=== PATIENT | female | born 1980 | race Caucasian/White ===

== ENCOUNTER → 2017-01-17 | Outpatient (CLI) | payer OTHER ==
[~2017-01-17] MED LIST: CITA20TA9 PO; LEVOIUD INT UTER
== END | disposition home or self-care (01) ==
LOC: C.PAPS 14:09
PROVIDERS: ATTEND Obstetrics & Gynecology
DX: Z12.4 Encounter for screening for malignant neoplasm of cervix (principal)

== ENCOUNTER 2017-07-04 19:58 | Emergency (ER) | payer OTHER ==
[~2017-07-04] VITALS: Ht 160 cm; Wt 158.6 kg
[~2017-07-04 19:58] MED LIST changes: -LEVOIUD INT UTER
[2017-07-04 20:04] VITALS: TEMP 37; Ht 160 cm; Wt 158.6 kg
[2017-07-04] MEDS ORDERED: LEVOIUD INT UTER (20:23)
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
[2017-07-04] MEDS ORDERED: OPTIRAY 320 IV PRN (20:45)
[2017-07-04 21:19] LABS: ISTAT CREATININE 0.8 mg/dl (0.6-1.3); ISTAT HEMOGLOBIN 16.3 g/dl (12.0-16.0); ISTAT IONIZED CALCIUM 1.11 mmol/l (1.12-1.32)
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
[2017-07-04] MEDS ORDERED: OXYCODONE IR HOME PACK PO ONE (22:30)
[2017-07-04 22:50] VITALS: BP 148/86; PULSE 80; O2SAT 98
== END 2017-07-04 22:50 | disposition home or self-care (01) ==
LOC: EDBD 19:58 → C.EDC 19:59
DX: S20.211A Contusion of right front wall of thorax, initial encounter (principal); V47.0XXA Car driver injured in collision with fixed or stationary object in nontraffic accident, initial encounter

== ENCOUNTER → 2018-03-04 | Outpatient (CLI) | payer OTHER ==
[~2018-03-04] MED LIST changes: -CITA20TA9 PO; +LEVO1IUD2 INT UTER
== END | disposition home or self-care (01) ==
LOC: C.PAPS 15:35
PROVIDERS: ATTEND Obstetrics & Gynecology
DX: Z12.4 Encounter for screening for malignant neoplasm of cervix (principal)

== ENCOUNTER → 2018-03-04 | Outpatient (CLI) | payer OTHER | END | disposition home or self-care (01) | LOC: C.LABSPEC 15:51 | PROVIDERS: ATTEND Obstetrics & Gynecology | DX: Z11.3 Encounter for screening for infections with a predominantly sexual mode of transmission (principal) ==

== ENCOUNTER → 2018-06-07 | Outpatient (CLI) | payer OTHER ==
[2018-06-07 14:43] LABS: HEP C IGG 13 YRS+OLDER_RFLX NEG (NEG)
== END | disposition home or self-care (01) ==
LOC: C.LAB1850 08:37
PROVIDERS: ATTEND Physician Assistant
DX: Z11.3 Encounter for screening for infections with a predominantly sexual mode of transmission (principal); R39.9 Unspecified symptoms and signs involving the genitourinary system

== ENCOUNTER 2024-03-01 00:24 | Observation (INO) ==
[2024-03-01 02:11] LABS: Basophils # (auto) 0.06 K/uL (0.00-0.20); Basophils % (auto) 0.3 %; Eosinophils % (auto) 0.5 %; Hematocrit (blood only) 39.4 % (37.0-47.0); Hemoglobin 12.7 g/dl (12.0-16.0); Immature Granulocytes # (auto) 0.22 K/uL (0.01-0.20); Immature Granulocytes % (auto) 1.2 %; Lymphocytes # (auto) 0.79 K/uL (1.20-3.40); Lymphocytes % (auto) 4.1 %; Mean Corpuscular Hemoglobin 29.2 pg (25.0-34.0); Mean Corpuscular Hgb Conc 32.2 g/dL (32.0-36.0); Mean Corpuscular Volume 90.6 fL (80.0-100.0); Mean Platelet Volume 8.6 fL (9.4-12.4); Monocytes # (auto) 0.97 K/uL (0.11-0.59); Monocytes % (auto) 5.1 %; Neutrophils # (auto) 16.94 K/uL (1.40-6.50); Neutrophils % (auto) 88.8 %; Platelet Count 220 K/uL (130-400); RDW Coefficient of Variation 12.8 % (11.5-14.5); RDW Standard Deviation 42.3 fL (36.4-46.3); Red Blood Count 4.35 M/uL (4.20-5.40); White Blood Count 19.08 K/ul (4.8-10.8)
[2024-03-01 02:32] LABS: Alanine Aminotransferase 13 U/L (7-52); Albumin Level 3.9 gm/dl (3.4-5.0); Alkaline Phosphatase 59 U/L (34-104); Anion Gap 9 (3-11); Aspartate Aminotransferase 12 U/L (13-39); BUN Creatinine Ratio 13.2 (10-20); Bilirubin Direct 0.1 mg/dl (0-0.2); Bilirubin,Total 0.5 mg/dl (0.2-1.0); Blood Urea Nitrogen 12 mg/dl (6-23); Calcium 8.8 mg/dl (8.6-10.3); Carbon Dioxide 25 mmol/L (21-32); Chloride 103 mmol/L (98-107); Est GFR (African American) 88.3 ml/min; Est GFR (Non-African American) 76.2 ml/min; Glucose 120 mg/dl (70-99(Fasting)); Magnesium 1.5 mg/dl (1.7-2.4); Potassium 3.6 mmol/L (3.5-5.1); Sodium 137 mmol/L (136-145); Total Protein 6.9 gm/dl (6.0-8.3)
[2024-03-01 02:39] LABS: Troponin I High Sensitivity 7.9 pg/ml (0-14)
--- NOTE | 2024-03-01 02:39 | Emergency Department Note ---
Impression & Plan Sepsis, Hypomagnesemia Admit to the [facility] ED Provider Note NAME: ROJAS PEREZ AGE: 43 SEX: Female INFORMANT: Patient ED PROVIDER(S): Alena Parekh DO CHIEF COMPLAINT: Fever and chills PLAN: Disposition: Admit to the [facility] MEDICAL DECISION MAKING: This is a 43-year-old female patient presents to the emergency department with fever, chills and fatigue. Overall, the patient does not feel well. She is currently taking Flagyl for previously diagnosed vaginal infection. She feels as if this is getting better. Patient denies any significant health problems. Laboratory studies revealed a white blood cell count of 19,000. H&H were stable. Renal function was normal. Electrolytes were unremarkable except for magnesium which was low. Lactate was normal but procalcitonin was elevated to 2.45. Patient was treated with an IV dose of cefepime as no source was readily identified. Patient was bolused with a total of 2 L of normal saline solution according to her ideal body weight. Patient was noted to be hypomagnesemic and started to receive magnesium replacement. Patient went for CT scan of the chest as she was complaining of shortness of breath upon her initial presentation to the emergency department. Patient's tachycardia resolved. [facility] for further management. Care/management discussed with: Patient, mother Triage Nursing notes: Reviewed and agree with them. Vital Signs: reviewed and remarkable for tachycardia Additional History obtained from: The mother who is at the bedside Differential Diagnosis: Sepsis, UTI, PE, pneumonia, bacteremia Diagnostics, independently interpreted by me: ECG: None Cardiac Monitoring: Sinus tachycardia at 108 Imaging studies: Portable chest x-ray-as per my independent interpretation-no obvious pulmonary Infiltrates or consolidations. CT scan of the chest: As per stat rad HPI: 43 year old Female arrives for evaluation of fever and chills. Around 4 PM this afternoon, the patient noted significant fever and chills while at work. She went to her room and covered himself up with a blanket. She then felt very fatigued. Patient then went home and continued to feel badly with shaking thought to be secondary to chills.. PAST MEDICAL HISTORY: See Below, PAST SURGICAL HISTORY: See Below, SOCIAL HISTORY: See Below, HOME MEDICATIONS: See list ALLERGIES: None VITALS: See Below PHYSICAL EXAMINATION: HEENT: Head - normocephalic and atraumatic. Pupils are equal, round, and reactive to light. Extraocular eye muscles are intact, and sclera are anicteric. Nose - moist nasal mucosa without discharge. Mouth - moist buccal mucosa. Oropharynx is nonerythematous and there is no tonsillar exudate or edema noted. Neck: Supple; no JVD, nuchal rigidity, cervical lymphadenopathy. Heart: Tachycardic rate and regular rhythm. There is a normal S1 and S2 with no murmurs, clicks, or gallops appreciated. Lungs: Clear to auscultation bilaterally with no wheezes, rales, or rhonchi. Abdomen: Soft, completely nontender, nondistended, with good bowel sounds. There are no palpable pulsatile masses or hepatosplenomegaly. There is no guarding, rigidity, or rebound noted. Extremities: No evidence of cyanosis, clubbing, or edema. There are easily palpable peripheral pulses. Skin: Some slight areas of excoriation on her legs but none that appear to be acutely infected. Emergency department treatment: classroom monitor, IV normal saline bolus, IV cefepime, IV magnesium, IV normal saline bolus Emergency department course: The patient was evaluated in room B-12. A complete history and physical was performed. IV lock was initiated and labs were drawn as above. Septic protocol was performed. An order was placed for continuous cardiac monitoring. The patient was in a sinus tachycardia at a rate of 108. Patient was bolused with a liter of normal saline solution. Urine specimen was obtained. Patient was given empiric dose of IV cefepime. Chest x-ray was performed. Her nose was swabbed for a bio fire. Patient was noted to be hypomagnesemic. A magnesium drip was started. She went for a CT scan of her chest. I reviewed these results with the patient. She received a second bolus of IV normal saline solution. I discussed the case with the [facility] Hospitalist. I have personally spent greater than 50 minutes of critical care time in the direct management of this patient. This includes bedside care, interpretation of diagnostic studies, and testing, discussion with consultants, patient, and family members, and other required patient management activities. This 50 minutes is in excess of all separately billable procedures. Past Med/Surg History Medical History (Updated 03/02/24 @ 08:03 by Alena Parekh DO) Hypertension History of COVID-19 2019- fatigue, loss of taste and smell, aches, fever, cough, sore throat 02/2022- runny nose, sinus congestion >>>no hospitalization, no current issues Health care maintenance Trichomonal vulvovaginitis Encounter for pre-operative examination Obesity Depression Anxiety Asthma HAS NOT USED INHALER IN YEARS Surgical History H/O colposcopy with cervical biopsy 02/15, janie 1 S/P colonoscopy S/P breast biopsy History of dilatation and curettage x2 Status post right foot surgery big toe, fused with metal in place History of open reduction and internal fixation (ORIF) procedure left heel---[address] History of umbilical hernia repair History of appendectomy History of section x2 History of tooth extraction wisdom teeth Family History Sister Colorectal cancer Grandfather (Paternal) Colorectal cancer Mother Myocardial infarction Hypertension Aunt Breast cancer maternal aunt Father Gout Family/Other Ovarian cancer Cousin Other Family history of malignant neoplasm of colon in relative diagnosed when younger than 50 years of age Denies family history of Prostate cancer Social History Smoking Status: Never smoker Second Hand Exposure: No; Do You Dip or Chew Tobacco: No; Hx Alcohol Use: No Hx Substance Use: No Preferred Language: Swiss Communication Ability: Effective Student Development Specialist Required: No Beliefs That Will Affect Care: None marital status: Current Living Situation: Other Current Living Situation Comment: Lives with Daughter current occupational status: employed 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 [email or web address] Other Information That Helps Us Care for You: No Feels Safe at Home: Yes Safety Concerns: Feels Safe At This Time Childhood Exposure to Second-Hand Smoke: No Dental Care, Regularly: Yes Physical Activity Frequency: Does not Exercise Seatbelt Use: always Sunscreen Use: No Assistive Devices: None Allergies Allergies Allergy/AdvReac Type Severity Reaction Status Date / Time No Known Drug Allergies Allergy Verified 11/19/23 15:49 Home Meds Home Medications Medication Instructions Recorded Confirmed levonorgestrel 21 mcg/24 hr (up to 1 ea intrauterine UD 05/27/19 11/19/23 8 years) 52 mg intrauterine device (Mirena) acetaminophen 650 mg 650 mg PO Q8H 08/25/22 11/19/23 tablet,extended release (Tylenol Arthritis Pain) multivitamin 1 tab PO DAILY 08/25/22 11/19/23 Previous Rx's Medication Instructions Recorded naproxen 500 mg tablet 500 mg PO BID #60 tabs 07/12/23 metronidazole 500 mg tablet 500 mg PO BID 7 days #14 tabs 09/12/23 amoxicillin 875 mg-potassium 1 tab PO BID #20 tabs 11/19/23 clavulanate 125 mg tablet fluconazole 150 mg tablet 150 mg PO Q3D 2 doses #2 tabs 11/19/23 Results & Data (ED) Vital Signs Vital Signs - 24 hr 03/01/24 08:00 Pulse Rate [Apical] 82 Respiratory Rate 20 Respiratory Effort / Characteristics Non-Labored Spontaneous Respiratory Depth Normal Respiratory Pattern Regular Blood Pressure [Right Arm] 126/80 Blood Pressure Mean [Right Arm] 95 Blood Pressure Position [Right Arm] Semi-fowlers Pulse Oximetry 97 Oxygen Delivery Method Room Air Laboratory Data 03/01/24 01:25 03/01/24 01:25 Lab Results 03/01/24 03/01/24 03/01/24 Range/Units 00:40 01:25 02:22 WBC 19.08 H (4.8-10.8) K/ul RBC 4.35 (4.20-5.40) M/uL Hgb 12.7 (12.0-16.0) g/dl Hct 39.4 (37.0-47.0) % MCV 90.6 (80.0-100.0) fL MCH 29.2 (25.0-34.0) pg MCHC 32.2 (32.0-36.0) g/dL RDW Std Deviation 42.3 (36.4-46.3) fL RDW Coeff of Vicky 12.8 (11.5-14.5) % Plt Count 220 (130-400) K/uL MPV 8.6 L (9.4-12.4) fL Immature Gran % (Auto) 1.2 % Neut % (Auto) 88.8 % Lymph % (Auto) 4.1 % [place] % (Auto) 5.1 % Eos % (Auto) 0.5 % Baso % (Auto) 0.3 % Neut # (Auto) 16.94 H (1.40-6.50) K/uL Lymph # (Auto) 0.79 L (1.20-3.40) K/uL [place] # (Auto) 0.97 H (0.11-0.59) K/uL Eos # (Auto) 0.10 (0.00-0.50) K/uL Baso # (Auto) 0.06 (0.00-0.20) K/uL Immature Gran # (Auto) 0.22 H (0.01-0.20) K/uL Sodium 137 (136-145) mmol/L Potassium 3.6 (3.5-5.1) mmol/L Chloride 103 (98-107) mmol/L Carbon Dioxide 25 (21-32) mmol/L Anion Gap 9 (3-11) BUN 12 (6-23) mg/dl Creatinine 0.91 (0.6-1.2) mg/dl Est Cr Clr Drug Dosing Not Reportable Est GFR ( Amer) 88.3 ml/min Est GFR (Non-Af Amer) 76.2 ml/min BUN/Creatinine Ratio 13.2 (10-20) Glucose 120 H (70-99(Fasting)) mg/dl Lactate (0.4-2.0) mmol/L Calcium 8.8 (8.6-10.3) mg/dl Magnesium 1.5 L (1.7-2.4) mg/dl Total Bilirubin 0.5 (0.2-1.0) mg/dl Direct Bilirubin 0.1 (0-0.2) mg/dl AST 12 L (13-39) U/L ALT 13 (7-52) U/L Alkaline Phosphatase 59 (34-104) U/L Troponin I High Sens 7.9 (0-14) pg/ml Total Protein 6.9 (6.0-8.3) gm/dl Albumin 3.9 (3.4-5.0) gm/dl Procalcitonin 2.45 H (0-0.5) ng/ml Urine Color Yellow Urine Appearance Clear (Clear) Urine pH 6.5 (4.5-7.5) Ur Specific [place] 1.014 (1.000-1.030) Urine Protein Negative (Negative) Urine Glucose (UA) Negative (Negative) Urine Ketones Negative (Negative) Urine Blood Negative (Negative) Urine Nitrite Negative (Negative) Urine Bilirubin Negative (Negative) Urine Urobilinogen Negative (Negative) Ur Leukocyte Esterase Negative (Negative) POC Ur Test (NEG) Nasal Screen MRSA (PCR) (Negative) Adenovirus (PCR) Not Detected (NotDetected) B. pertussis DNA (PCR) Not Detected (NotDetected) B.parapertussis DNA PCR Not Detected (NotDetected) C. pneumoniae DNA (PCR) Not Detected (NotDetected) Coronavirus OC43 (PCR) Not Detected (NotDetected) Coronavirus HKU1 (PCR) Not Detected (NotDetected) Coronavirus 229E (PCR) Not Detected (NotDetected) SARS-CoV-2 (PCR) Not Detected (NotDetected) Coronavirus NL63 (PCR) Not Detected (NotDetected) Human Metapneumovir PCR Not Detected (NotDetected) Influenza Type A (PCR) Not Detected (NotDetected) Influenza Type B (PCR) Not Detected (NotDetected) M. pneumoniae (PCR) Not Detected (NotDetected) Parainfluenza 1 (PCR) Not Detected (NotDetected) Parainfluenza 2 (PCR) Not Detected (NotDetected) Parainfluenza 3 (PCR) Not Detected (NotDetected) Parainfluenza 4 (PCR) Not Detected (NotDetected) RSV (PCR) Not Detected (NotDetected) Entero/Rhino (PCR) Not Detected (NotDetected) 03/01/24 03/01/24 03/01/24 Range/Units 02:24 08:00 08:45 WBC (4.8-10.8) K/ul RBC (4.20-5.40) M/uL Hgb (12.0-16.0) g/dl Hct (37.0-47.0) % MCV (80.0-100.0) fL MCH (25.0-34.0) pg MCHC (32.0-36.0) g/dL RDW Std Deviation (36.4-46.3) fL RDW Coeff of Vicky (11.5-14.5) % Plt Count (130-400) K/uL MPV (9.4-12.4) fL Immature Gran % (Auto) % Neut % (Auto) % Lymph % (Auto) % [place] % (Auto) % Eos % (Auto) % Baso % (Auto) % Neut # (Auto) (1.40-6.50) K/uL Lymph # (Auto) (1.20-3.40) K/uL [place] # (Auto) (0.11-0.59) K/uL Eos # (Auto) (0.00-0.50) K/uL Baso # (Auto) (0.00-0.20) K/uL Immature Gran # (Auto) (0.01-0.20) K/uL Sodium (136-145) mmol/L Potassium (3.5-5.1) mmol/L Chloride (98-107) mmol/L Carbon Dioxide (21-32) mmol/L Anion Gap (3-11) BUN (6-23) mg/dl Creatinine (0.6-1.2) mg/dl Est Cr Clr Drug Dosing Est GFR ( Amer) ml/min Est GFR (Non-Af Amer) ml/min BUN/Creatinine Ratio (10-20) Glucose (70-99(Fasting)) mg/dl Lactate 1.5 (0.4-2.0) mmol/L Calcium (8.6-10.3) mg/dl Magnesium (1.7-2.4) mg/dl Total Bilirubin (0.2-1.0) mg/dl Direct Bilirubin (0-0.2) mg/dl AST (13-39) U/L ALT (7-52) U/L Alkaline Phosphatase (34-104) U/L Troponin I High Sens (0-14) pg/ml Total Protein (6.0-8.3) gm/dl Albumin (3.4-5.0) gm/dl Procalcitonin (0-0.5) ng/ml Urine Color Urine Appearance (Clear) Urine pH (4.5-7.5) Ur Specific [place] (1.000-1.030) Urine Protein (Negative) Urine Glucose (UA) (Negative) Urine Ketones (Negative) Urine Blood (Negative) Urine Nitrite (Negative) Urine Bilirubin (Negative) Urine Urobilinogen (Negative) Ur Leukocyte Esterase (Negative) POC Ur Test NEG (NEG) Nasal Screen MRSA (PCR) Negative (Negative) Adenovirus (PCR) (NotDetected) B. pertussis DNA (PCR) (NotDetected) B.parapertussis DNA PCR (NotDetected) C. pneumoniae DNA (PCR) (NotDetected) Coronavirus OC43 (PCR) (NotDetected) Coronavirus HKU1 (PCR) (NotDetected) Coronavirus 229E (PCR) (NotDetected) SARS-CoV-2 (PCR) (NotDetected) Coronavirus NL63 (PCR) (NotDetected) Human Metapneumovir PCR (NotDetected) Influenza Type A (PCR) (NotDetected) Influenza Type B (PCR) (NotDetected) M. pneumoniae (PCR) (NotDetected) Parainfluenza 1 (PCR) (NotDetected) Parainfluenza 2 (PCR) (NotDetected) Parainfluenza 3 (PCR) (NotDetected) Parainfluenza 4 (PCR) (NotDetected) RSV (PCR) (NotDetected) Entero/Rhino (PCR) (NotDetected) Administered Medications Acetaminophen (Acetaminophen 325 Mg Tab) 650 mg PO Q4H PRN PRN Reason: pain/fever Stop: 03/31/24 11:04 Last Admin: 03/02/24 07:18 Dose: 650 mg Documented By: Admin: 03/02/24 00:19 Dose: 650 mg Documented By: Admin: 03/01/24 11:49 Dose: 650 mg Documented By: CEF Enoxaparin Sodium (Enoxaparin Inj 40 Mg/0.4 Ml Syr) 40 mg SQ Q12H ARIELLE Stop: 03/31/24 11:59 Last Admin: 03/02/24 00:12 Dose: 40 mg Documented By: Admin: 03/01/24 11:55 Dose: 40 mg Documented By: CEF Cefepime HCl 2,000 mg/ Syringe 20 mls @ 5 mls/min IV Q8H ARIELLE; Protocol Stop: 03/08/24 11:59 Last Admin: 03/02/24 04:32 Dose: 5 mls/min Documented By: Admin: 03/01/24 20:32 Dose: 5 mls/min Documented By: Admin: 03/01/24 11:48 Dose: 5 mls/min Documented By: CEF Discontinued Medications Acetaminophen (Acetaminophen 500 Mg Tab) 1,000 mg PO NOW STA Stop: 03/01/24 02:38 Last Admin: 03/01/24 02:53 Dose: 1,000 mg Documented By: RENE Sodium Chloride (Nss) 1,000 mls @ 999 mls/hr IV .Q1H1M ONE Stop: 03/01/24 03:54 Last Infusion: 03/01/24 05:07 Dose: Infused Documented By: Admin: 03/01/24 03:52 Dose: 999 mls/hr Documented By: KATIE Cefepime HCl 1,000 mg/ Syringe 10 mls @ 5 mls/min IV NOW STA; Protocol Stop: 03/01/24 02:55 Last Admin: 03/01/24 03:52 Dose: 5 mls/min Documented By: KATIE Sodium Chloride (Nss) 1,000 mls @ 999 mls/hr IV .Q1H1M ONE Stop: 03/01/24 04:33 Last Infusion: 03/01/24 05:07 Dose: Infused Documented By: Admin: 03/01/24 03:56 Dose: 999 mls/hr Documented By: KATIE Magnesium Sulfate/Dextrose (Magnesium Sulfate / D5w) 1 gm in 100 mls @ 100 mls/hr IV NOW STA Stop: 03/01/24 05:22 Last Infusion: 03/01/24 06:04 Dose: Infused Documented By: Admin: 03/01/24 04:33 Dose: 100 mls/hr Documented By: KATIE Lactated Ringer's (Lr) 1,000 mls @ 125 mls/hr IV .Q8H ARIELLE Stop: 03/01/24 22:29 Last Infusion: 03/01/24 23:15 Dose: Infused Documented By: Admin: 03/01/24 15:04 Dose: 125 mls/hr Documented By: CEF Ioversol (Optiray 320 125ml) 112 ml IV ONCE ONE Stop: 03/01/24 04:38 Last Admin: 03/01/24 04:37 Dose: 112 ml Documented By: GAVIN Discharge Plan Visit Data Chief Complaint: Illness Stated Complaint: CHILLS THEN SWEATY,SOB ED Provider: Alena Parekh Discharge Problem: Sepsis, Hypomagnesemia Patient Disposition: Admitted As Inpatient Discharge Instructions Interventions: ED Discharge Assessment Last Done: 03/01/24 10:24 Discharge Problem: Sepsis Qualifiers: Sepsis type: sepsis due to unspecified organism Sepsis acute organ dysfunction status: without acute organ dysfunction Qualified Code(s): A41.9 - Sepsis, unspecified organism
[2024-03-01] MEDS: ACETAMINOPHEN 500 MG TAB PO STA (02:53)
[2024-03-01 03:08] LABS: Appearance Urine Clear (Clear); Bilirubin Urine Negative (Negative); Blood Urine Negative (Negative); Color Urine Yellow; Glucose Urine UA Negative (Negative); Ketones Urine Negative (Negative); Leukocyte Esterase Urine Negative (Negative); Nitrite Urine Negative (Negative); Protein Urine Negative (Negative); Specific Gravity Urine 1.014 (1.000-1.030); Urobilinogen Urine Negative (Negative); pH Urine 6.5 (4.5-7.5)
[2024-03-01 03:10] LABS: Adenovirus PCR Not Detected (NotDetected); Bordetella parapertussis PCR Not Detected (NotDetected); Bordetella pertussis PCR Not Detected (NotDetected); Chlamydia pneumoniae PCR Not Detected (NotDetected); Coronavirus 229E PCR Not Detected (NotDetected); Coronavirus CoV-2 (COVID19)PCR Not Detected (NotDetected); Coronavirus HKU1 PCR Not Detected (NotDetected); Coronavirus NL63 PCR Not Detected (NotDetected); Coronavirus OC43PCR Not Detected (NotDetected); Human Metapneumovirus PCR Not Detected (NotDetected); Influenza A PCR Not Detected (NotDetected); Influenza B PCR Not Detected (NotDetected); Mycoplasma pneumoniae PCR Not Detected (NotDetected); Parainfluenza Virus 1 PCR Not Detected (NotDetected); Parainfluenza Virus 2 PCR Not Detected (NotDetected); Parainfluenza Virus 3 PCR Not Detected (NotDetected); Parainfluenza Virus 4 PCR Not Detected (NotDetected); Respiratory Syncytial VirusPCR Not Detected (NotDetected); Rhinovirus/Enterovirus PCR Not Detected (NotDetected)
[2024-03-01] MEDS: CEFEPIME 1,000 MG in SYRINGE 0 ML IV STA (03:52)
[2024-03-01] MEDS: SODIUM CHLORIDE 0.9% 1,000 ML IV ONE ×2 (03:52→03:56)
[2024-03-01] MEDS: MAGNESIUM SULFATE / D5W 1 GM/100 ML BAG IV STA (04:33)
[2024-03-01] MEDS: OPTIRAY 320 125ml IV ONE (04:37)
--- NOTE | 2024-03-01 06:22 | CT Scan Report ---
CT ANGIOGRAM OF THE CHEST CLINICAL HISTORY: Sepsis. Generalized weakness. Shaking and chills. COMPARISON STUDY: Chest x-ray dated 03/01/2024. Chest CT dated 07/04/2017. TECHNIQUE: Following the IV administration of 112 cc of Optiray 320, CT angiogram of the chest was pe rformed from the upper abdomen to the thoracic inlet utilizing the pulmonary embolus protocol. Images are reviewed in the axial, sagittal, and coronal planes. 3-D MIPS images are created and assessed. I V contrast was administered without complication. A dose lowering technique was utilized adhering to the principles of ALARA. The examination is degraded by large body habitus, and by streak artifact f rom the body wall abutting the CT gantry. There is also significant motion artifact. CT DOSE: 901.25 mGy.cm FINDINGS: Thyroid: Imaged portions of the thyroid gland are normal in size and attenuation. Thoracic aorta: The thoracic aorta is normal in caliber and demonstrates standard 3-vessel arch anato my. No dissection is seen. Pulmonary vasculature: The pulmonary trunk is normal in caliber. There are no filling defects identif ied in main, lobar, or proximal segmental pulmonary branches to suggest pulmonary embolus. Evaluation of the segmental and subsegmental branches is degraded by lack of contrast opacification as well as streak and motion artifact. Heart: The heart is top normal in size and without pericardial effusion. Lungs and pleural spaces: Evaluation of the lung parenchyma is degraded by motion artifact. No airspa ce consolidation or pleural effusion is identified. Mediastinum: There is no mediastinal lymphadenopathy. Brittany: Clear. Axillae: There is no axillary lymphadenopathy. Upper abdomen: The liver is enlarged and steatotic. Partially visualized upper abdominal viscera is o therwise within normal limits. Skeletal structures: No lytic or blastic bony lesions are seen. IMPRESSION: 1. There is no evidence of central pulmonary embolus in the main, lobar, or proximal segmental pulmon caitlin arteries. The segmental and subsegmental vessels are not well assessed. 2. There is no airspace consolidation or pleural effusion. 3. Hepatic steatosis. ACT 112: Negative or not required by law. Electronically signed by: Jacoby Hung M.D. 03/01/2024 6:20 AM
--- NOTE | 2024-03-01 06:23 | XRay Report ---
SINGLE VIEW CHEST CLINICAL HISTORY: Sepsis FINDINGS: An AP, portable, upright chest radiograph is compared to study dated 08/29/2012 and correlat ed with chest CT dated 07/04/2017. The cardiomediastinal silhouette is top normal for projection. There is mild bibasilar atelectasis. The lungs and pleural spaces are otherwise clear. No pneumothorax is seen. The bony thorax is grossly intact. IMPRESSION: No acute cardiopulmonary abnormality is identified. ACT 112: Negative or not required by law. Electronically signed by: Jacoby Hung M.D. 03/01/2024 6:21 AM
--- NOTE | 2024-03-01 07:46 | History & Physical Report ---
Date of Service March 01, 2024 Assessment & Plan (1) Sepsis: Plan: 43 y/o admitted with fever/myalgias found to have sepsis Tm 39.6 with unknown source ED workup unrevealing - WBC 19K, procal elevated 2.45, CXR and CTA chest negative (CTA no PE to prox segmental, limited by motion), UA neg, resp biofire neg -cefepime 1g given in ED, 1g IV for hypomagnesemia of 1.5 This AM she has blossomed a mild appearing but distinct cellulitis of skin overlying L ankle, associated with some skin breaks in heel callous and recent picking Sepsis likely caused by L ankle cellulitis, presentation characteristic of strep infection. No purulence. SSTI does not typically cause procal elevation, however. Monitor for development of other infectious S/Sx -continue cefepime 2 g IV q8h but likely can narrow soon -MRSA nasal swab -IV fluids -hold off on MRSA coverage -blood cultures 03/01 pending -urine test -AM CBC BMP and procal (2) Hypertension: Plan: History of HTN not recently on medication Moderately hypertensive today - monitor (3) Obesity, morbid, BMI 40.0-49.9: Plan: Morbid obesity with BMI 69 Plan Chronic issues Depression/anxiety Hepatic steatosis noted on imaging urine test ordered DVT ppx: bid enoxaparin History of Present Illness Chief Complaint: fever, myalgias Primary Care Provider: Bonilla Baker MD 43 y/o woman with hx hypertension not currently on medications who developed fevers/chills and malaise yesterday afternoon. [place] terrible and presented to ED. Febrile to 39.4, tachycardic and WBC elevated at 19K. Procalcitonin also elevated at 2.45. She did not have any focal symptoms. Mild frontal headache with fever. [place] some shortness of breath last night but resolved and no cough or hypoxia. No URI or sinusitis symptoms. No chest or abdominal pain. No N/V/D and no dysuria/urinary frequency. No neck or back pain or joint pains. No cellulitis apparent on ED exam. CTA chest was negative, CXR neg, UA neg, resp biofire neg When I saw her this am she was feeling much better. During our conversation she noted that skin over her L ankle was now red and a little swollen/tender and was not red last night. She has some deep skin cracks in her heel callous near that area and acknowledges she's been picking at that area. Ankle joint is not painful and she has been ambulatory. Allergies Allergy/AdvReac Type Severity Reaction Status Date / Time No Known Drug Allergies Allergy Verified 11/19/23 15:49 Home Medications Medication Instructions Recorded Confirmed Type levonorgestrel 21 mcg/24 hr (up to 1 ea intrauterine UD 05/27/19 11/19/23 History 8 years) 52 mg intrauterine device (Mirena) acetaminophen 650 mg 650 mg PO Q8H 08/25/22 11/19/23 History tablet,extended release (Tylenol Arthritis Pain) multivitamin 1 tab PO DAILY 08/25/22 11/19/23 History naproxen 500 mg tablet 500 mg PO BID #60 tabs 07/12/23 11/19/23 Rx metronidazole 500 mg tablet 500 mg PO BID 7 days #14 tabs 09/12/23 11/19/23 Rx amoxicillin 875 mg-potassium 1 tab PO BID #20 tabs 11/19/23 11/19/23 Rx clavulanate 125 mg tablet fluconazole 150 mg tablet 150 mg PO Q3D 2 doses #2 tabs 11/19/23 11/19/23 Rx Past Med/Surg History Medical History (Updated 03/01/24 @ 07:49 by Mona Miller MD) Hypertension History of COVID-2019- fatigue, loss of taste and smell, aches, fever, cough, sore throat 02/2022- runny nose, sinus congestion >>>no hospitalization, no current issues Health care maintenance Trichomonal vulvovaginitis Encounter for pre-operative examination Obesity Depression Anxiety Asthma HAS NOT USED INHALER IN YEARS Surgical History H/O colposcopy with cervical biopsy 02/15, janie 1 S/P colonoscopy S/P breast biopsy History of dilatation and curettage x2 Status post right foot surgery big toe, fused with metal in place History of open reduction and internal fixation (ORIF) procedure left heel---[address] History of umbilical hernia repair History of appendectomy History of section x2 History of tooth extraction wisdom teeth Family History Sister Colorectal cancer Grandfather (Paternal) Colorectal cancer Mother Myocardial infarction Hypertension Aunt Breast cancer maternal aunt Father Gout Family/Other Ovarian cancer Cousin Other Family history of malignant neoplasm of colon in relative diagnosed when younger than 50 years of age Denies family history of Prostate cancer Social History Smoking Status: Never smoker Second Hand Exposure: No; Do You Dip or Chew Tobacco: No; Hx Alcohol Use: No Hx Substance Use: No Preferred Language: Belgian Communication Ability: Effective Director Of Regional Sales Required: No Beliefs That Will Affect Care: None marital status: Current Living Situation: Other Current Living Situation Comment: Lives with Daughter current occupational status: employed 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 [employer] Other Information That Helps Us Care for You: No Feels Safe at Home: Yes Safety Concerns: Feels Safe At This Time Childhood Exposure to Second-Hand Smoke: No Dental Care, Regularly: Yes Physical Activity Frequency: Does not Exercise Seatbelt Use: always Sunscreen Use: No Assistive Devices: None Physical Exam 2 Physical Exam: PHYSICAL EXAMINATION Last 24h vital signs reviewed, see documentation in flowsheet General: comfortable appearing, no distress HEENT: Normocephalic, atraumatic, pupils round and equal, sclerae anicteric, no conjunctival injection, moist mucus membranes Lungs: Normal respiratory effort. Clear to auscultation bilaterally. No RRW Heart: Regular rate and rhythm, no murmurs. No JVD Abdomen: Soft, nontender, nondistended. Bowel sounds present. Extremities: Warm, dry, well-perfused. No extremity edema. L ankle with light pink erythema, patchy at the margins, in area of sock cuff. There is mild warmth and minimal induration. Heel callous with a few small but deep cracks medially and laterally - medial one is nearby the erythematous area neck and back nontender to palpation. no joint swelling or effusions Neuro: Alert and oriented x 4, face symmetric, moves 4 extremities well Psych: Normal affect and behavior Results & Data Results & Data Vital Signs (Past 12 Hours) Vital Signs Temp Pulse Pulse Resp BP BP Pulse Ox 03/01/24 07:12 36.9 C 82 22 145/94 H 97 03/01/24 06:37 83 19 138/73 97 03/01/24 06:09 77 03/01/24 04:00 37.7 C H 84 18 109/56 L 91 03/01/24 01:53 03/01/24 01:28 39.6 C H 106 H 22 98 03/01/24 00:49 116 H 03/01/24 00:30 37.1 C 122 H 22 128/82 93 O2 Del Method O2 Flow Rate 03/01/24 07:12 Room Air 03/01/24 06:37 Nasal Cannula 2 03/01/24 06:09 03/01/24 04:00 Room Air 03/01/24 01:53 Room Air 03/01/24 01:28 Room Air 03/01/24 00:49 03/01/24 00:30 Room Air Laboratory Results 03/01/24 01:25 03/01/24 01:25 Diagnostic Findings Chest X-Ray 03/01/24 01:53 SINGLE VIEW CHEST CLINICAL HISTORY: Sepsis FINDINGS: An AP, portable, upright chest radiograph is compared to study dated 08/29/2012 and correlated with chest CT dated 07/04/2017. The cardiomediastinal silhouette is top normal for projection. There is mild bibasilar atelectasis. The lungs and pleural spaces are otherwise clear. No pneumothorax is seen. The bony thorax is grossly intact. IMPRESSION: No acute cardiopulmonary abnormality is identified. ACT 112: Negative or not required by law. Electronically signed by: Jacoby Hung M.D. 03/01/2024 6:21 AM Chest CTA 03/01/24 04:28 CT ANGIOGRAM OF THE CHEST CLINICAL HISTORY: Sepsis. Generalized weakness. Shaking and chills. COMPARISON STUDY: Chest x-ray dated 03/01/2024. Chest CT dated 07/04/2017. TECHNIQUE: Following the IV administration of 112 cc of Optiray 320, CT angiogram of the chest was performed from the upper abdomen to the thoracic inlet utilizing the pulmonary embolus protocol. Images are reviewed in the axial, sagittal, and coronal planes. 3-D MIPS images are created and assessed. IV contrast was administered without complication. A dose lowering technique was utilized adhering to the principles of ALARA. The examination is degraded by large body habitus, and by streak artifact from the body wall abutting the CT gantry. There is also significant motion artifact. CT DOSE: 901.25 mGy.cm FINDINGS: Thyroid: Imaged portions of the thyroid gland are normal in size and attenuation. Thoracic aorta: The thoracic aorta is normal in caliber and demonstrates standard 3-vessel arch anatomy. No dissection is seen. Pulmonary vasculature: The pulmonary trunk is normal in caliber. There are no filling defects identified in main, lobar, or proximal segmental pulmonary branches to suggest pulmonary embolus. Evaluation of the segmental and subsegmental branches is degraded by lack of contrast opacification as well as streak and motion artifact. Heart: The heart is top normal in size and without pericardial effusion. Lungs and pleural spaces: Evaluation of the lung parenchyma is degraded by motion artifact. No airspace consolidation or pleural effusion is identified. Mediastinum: There is no mediastinal lymphadenopathy. Brittany: Clear. Axillae: There is no axillary lymphadenopathy. Upper abdomen: The liver is enlarged and steatotic. Partially visualized upper abdominal viscera is otherwise within normal limits. Skeletal structures: No lytic or blastic bony lesions are seen. IMPRESSION: 1. There is no evidence of central pulmonary embolus in the main, lobar, or proximal segmental pulmonary arteries. The segmental and subsegmental vessels are not well assessed. 2. There is no airspace consolidation or pleural effusion. 3. Hepatic steatosis. ACT 112: Negative or not required by law. Electronically signed by: Jacboy Hung M.D. 03/01/2024 6:20 AM ECG Additional Comments: sinus tachycardia, poor RWP / poss anterior infarct, nonspecific t-wave flattening leads III, V3-V6. I personally reviewed the EKG tracing PG Care Time/CCT Total # of Minutes Spent Total Time Spent with Patient: Total time spent is greater than 50% in coordination of care (as documented) at patient's floor/unit and/or counseling patient: Coding Level of Care Code 70709 INT INP/OBS CARE 2/55MIN Diagnoses Sepsis A41.9 Hypertension I10 Obesity, morbid, BMI 40.0-49.9 E66.01
[2024-03-01] MEDS ORDERED: POLYETHYLENE (MIRALAX) 17 GM PACK PO PRN (11:05)
[2024-03-01] MEDS ORDERED: ALUMINUM/MAGNESIUM SUSP 30 ML UDC PO PRN (11:05)
[2024-03-01] MEDS ORDERED: ONDANSETRON INJ 2 MG/ML 2 ML VIAL IV PRN (11:05)
[2024-03-01] MEDS ORDERED: MELATONIN 3 MG TAB PO PRN (11:05)
[2024-03-01] MEDS: CEFEPIME 2,000 MG in SYRINGE 0 ML IV SCH (11:48)
[2024-03-01] MEDS: ACETAMINOPHEN 325 MG TAB PO PRN (11:49)
[2024-03-01] MEDS: ENOXAPARIN INJ 40 MG/0.4 ML SYR SQ SCH (11:55)
[2024-03-01] MEDS: LACTATED RINGER'S 1,000 ML IV SCH (15:04)
[2024-03-02 08:13] LABS: Hematocrit (blood only) 36.2 % (37.0-47.0); Hemoglobin 11.8 g/dl (12.0-16.0); Mean Corpuscular Hemoglobin 29.6 pg (25.0-34.0); Mean Corpuscular Hgb Conc 32.6 g/dL (32.0-36.0); Mean Corpuscular Volume 90.7 fL (80.0-100.0); Mean Platelet Volume 8.8 fL (9.4-12.4); Platelet Count 191 K/uL (130-400); RDW Coefficient of Variation 13.2 % (11.5-14.5); RDW Standard Deviation 43.8 fL (36.4-46.3); Red Blood Count 3.99 M/uL (4.20-5.40); White Blood Count 8.25 K/ul (4.8-10.8)
[2024-03-02 08:30] LABS: BUN Creatinine Ratio 8.6 (10-20); Calcium 8.1 mg/dl (8.6-10.3); Creatinine Clr Calc Pharmacy 144.6 ml/min; Est GFR (African American) 101.7 ml/min; Est GFR (Non-African American) 87.7 ml/min; Potassium 3.5 mmol/L (3.5-5.1)
[2024-03-02] MEDS: cefTRIAXone SODIUM 2,000 MG/50 ML BAG IV SCH (11:56)
--- NOTE | 2024-03-02 14:42 | Hospitalist Progress Note ---
Date of Service March 02, 2024 Assessment & Plan (1) Sepsis: Plan: 43 y/o admitted with fever/myalgias found to have sepsis Tm 39.6 with unknown source and unrevealing ED workup. Over the first 24 hours became very clear that she has a left ankle cellulitis. ED workup unrevealing - WBC 19K, procal elevated 2.45, CXR and CTA chest negative (CTA no PE to prox segmental, limited by motion), UA neg, resp biofire neg -cefepime 1g given in ED, 1g IV for hypomagnesemia of 1.5 By AM of admission 03/01 she had blossomed a mild appearing but distinct cellulitis of skin overlying L ankle, associated with some skin breaks in heel callous and recent picking. By AM of 03/02 ankle cellulitis was very obvious. Sepsis related to L ankle cellulitis, presentation characteristic of strep infection. No purulence. Fever and leukocytosis have resolved. Cellulitis has darkened and more indurated but that is expected evolution. Procal increased from 2.45-->4.70 makes me more concerned about bacteremia. SSTI does not typically cause procal elevation, however. Will continue IV antibiotics and monitor blood cultures - if negative tomorrow at 48h can discharge home on po antibiotics -narrowed cefepime to ceftriaxone 2g IV q24h -MRSA nasal swab neg, not on MRSA coverage -IV fluids -blood cultures 03/01 pending (2) Hypertension: Plan: History of HTN not recently on medication. BP was elevated in ED normotensive today (3) Obesity, morbid, BMI 40.0-49.9: Plan: Morbid obesity with BMI 69 Plan Chronic issues Depression/anxiety Hepatic steatosis noted on imaging urine test neg DVT ppx: bid enoxaparin Admission and Anticipated Discharge Date Admission Date: March 01, 2024 Subjective Improved with respect to fever has resolved and malaise is resolving. Left ankle erythema is much more obvious cellulitis today Physical Exam 2 Physical Exam: PHYSICAL EXAMINATION Last 24h vital signs reviewed, see documentation in flowsheet General: comfortable appearing, no distress HEENT: Normocephalic, atraumatic, pupils round and equal, sclerae anicteric, no conjunctival injection, moist mucus membranes Lungs: Normal respiratory effort. Clear to auscultation bilaterally. No RRW Heart: Regular rate and rhythm, no murmurs. No JVD Abdomen: nondistended. Bowel sounds present. Extremities: Warm, dry, well-perfused. No extremity edema. L ankle with dark pink erythema, mild warmth and some induration. Heel callous with a few small but deep cracks medially and laterally - Neuro: Alert and oriented x 4, face symmetric, moves 4 extremities well Psych: Normal affect and behavior Results & Data Results & Data Vital Signs (Past 12 Hours) Vital Signs Temp Pulse Resp BP Pulse Ox O2 Del Method 03/02/24 07:21 Room Air 03/02/24 07:20 37.0 C 79 18 129/73 97 Room Air 03/02/24 07:18 37.0 C 86 16 122/73 94 Room Air Laboratory Results 03/02/24 07:34 03/02/24 07:34 PG Care Time/CCT Total # of Minutes Spent Total Time Spent with Patient: Total time spent is greater than 50% in coordination of care (as documented) at patient's floor/unit and/or counseling patient: Coding Level of Care Code 37304 SUB INP/OBS CARE 2/35MIN Diagnoses Sepsis A41.9 Hypertension I10 Obesity, morbid, BMI 40.0-49.9 E66.01
--- NOTE | 2024-03-02 22:14 | Electrocardiogram Report ---
Test Reason : Blood Pressure : / mmHG Vent. Rate : 115 BPM Atrial Rate : 115 BPM P-R Int : 148 ms QRS Dur : 072 ms QT Int : 284 ms P-R-T Axes : 035 066 063 degrees QTc Int : 392 ms Sinus tachycardia Low voltage QRS Cannot rule out Anterior infarct , age undetermined Abnormal ECG When compared with ECG of 04-JUL-2017 20:09, Nonspecific T wave abnormality now evident in Anterolateral leads Confirmed by Zackery Rueda ([id number]) on 03/02/2024 10:13:43 PM Referred By: REFERRED SELF Confirmed By:Zackery Rueda
--- NOTE | 2024-03-03 18:06 | Discharge Summary ---
Date of Service March 03, 2024 Admission HPI Per Admitting Provider 43 y/o woman with hx hypertension not currently on medications who developed fevers/chills and malaise yesterday afternoon. [place] terrible and presented to ED. Febrile to 39.4, tachycardic and WBC elevated at 19K. Procalcitonin also elevated at 2.45. She did not have any focal symptoms. Mild frontal headache with fever. [place] some shortness of breath last night but resolved and no cough or hypoxia. No URI or sinusitis symptoms. No chest or abdominal pain. No N/V/D and no dysuria/urinary frequency. No neck or back pain or joint pains. No cellulitis apparent on ED exam. CTA chest was negative, CXR neg, UA neg, resp biofire neg When I saw her this am she was feeling much better. During our conversation she noted that skin over her L ankle was now red and a little swollen/tender and was not red last night. She has some deep skin cracks in her heel callous near that area and acknowledges she's been picking at that area. Ankle joint is not painful and she has been ambulatory. Principal Diagnosis sepsis due to LLE cellulitis Discharge Exam PHYSICAL EXAMINATION Last 24h vital signs reviewed, see documentation in flowsheet General: comfortable appearing, no distress HEENT: Normocephalic, atraumatic, pupils round and equal, sclerae anicteric, no conjunctival injection, moist mucus membranes Lungs: Normal respiratory effort. Heart: def Abdomen: nondistended. Extremities: Warm, dry, well-perfused. No extremity edema. L ankle with dark pink erythema, mild warmth and some induration - all improved 5/6. good ROM at ankle without pain. Heel callous with a few small but deep cracks medially and laterally Neuro: Alert and oriented x 4, face symmetric, moves 4 extremities well Psych: Normal affect and behavior Discharge Data Allergies Allergy/AdvReac Type Severity Reaction Status Date / Time No Known Drug Allergies Allergy Verified 11/19/23 15:49 Consultations 03/01/24 07:06 ED Decision to Admit Stat Ordered Studies 03/01/24 04:28 CT angio chest PE protocol Stat 03/02/24 07:34 03/02/24 07:34 03/02/24 07:34 03/02/24 07:34 Hospital Course (1) Sepsis: 43 y/o admitted with fever/myalgias found to have sepsis Tm 39.6 with unknown source and unrevealing ED workup. Over the first 24 hours became very clear that she has a left ankle cellulitis. ED workup unrevealing - WBC 19K, procal elevated 2.45, CXR and CTA chest negative (CTA no PE to prox segmental, limited by motion), UA neg, resp biofire neg -cefepime 1g given in ED, 1g IV for hypomagnesemia of 1.5 By AM of admission 03/01 she had blossomed a mild appearing but distinct cellulitis of skin overlying L ankle, associated with some skin breaks in heel callous and recent picking. By AM of 03/02 ankle cellulitis was very obvious. Sepsis related to L ankle cellulitis, presentation characteristic of strep infection. No purulence. Fever and leukocytosis have resolved. Cellulitis has darkened and more indurated but that is expected evolution, improved overnight 03/02-03/03. Discharged on cefuroxime to complete 7d course -blood cultures from 03/01 pending - NGTD at >48h -MRSA nasal swab neg, not on MRSA coverage (2) Hypertension: History of HTN not recently on medication. BP was elevated in ED normotensive half the time and moderately elevated BP half the time while in hospital -she will monitor as outpatient, keep log, follow up with PCP (3) Obesity, morbid, BMI 40.0-49.9: Morbid obesity with BMI 69 Plan Chronic issues Depression/anxiety Hepatic steatosis noted on imaging Total Time Total Time Spent Total Time Spent (In Minutes): <30 minutes Discharge Plan Discharge Items Patient Disposition: Home - Self-Care Reason For Visit: SEPSIS Discharge Diagnosis: sepsis due to left lower extremity cellulitis Activity: Per Instructions section Weightbearing: Full weightbearing Non-emergency contact: Primary Care Provider Call non-emergency contact if: you have any medication questions, your symptoms worsen and you have a fever Follow-up/Referrals: Bonilla Baker MD [Primary Care Provider] - 03/10/24 11:30 am (Appointment will be with Monae Ramirez) Diet: Regular Addtl Attending Provider Instructions: Keep your left leg elevated as much as possible this week. Sometimes there is increased swelling in the first 24h after getting home because you are walking around more, but redness and pain should not be significantly worsening. We will treat with a fairly broad oral antibiotic. The IV dose will be in your system for 24h so you can start the oral antibiotic tomorrow morning. There is a small chance we may need to bring you back to the hospital for IV antibiotics if your blood cultures turn positive. They are negative at 48h which is pretty good, but they do not finalize completely for 5 days. Consider seeing a buttonhole maker hand for foot care. Use over the counter treatment for athlete's foot (tinea pedis) as directed. Avoid picking at the callouses on your feet - they are harmless unless they're getting deep cracks in them. Generally its better to soak them and use a gentle foot file to remove callouses rather than picking/pulling off skin, but I would not try to do this until the infection is completely resolved. Monitor your blood pressure, keep track and follow up in primary care. You had some elevated BPs in the hospital, but also a lot of normal BPs. Pending Studies at Discharge: Yes Stand-Alone Forms: My [facility], Smoking Cessation Medications and DC Order Prescriptions: New cefuroxime axetil 500 mg tablet 500 mg PO BID 7 Days Qty: 14 0RF Continued naproxen 500 mg tablet 500 mg PO BID Qty: 60 2RF acetaminophen [Tylenol Arthritis Pain] 650 mg tablet extended release 650 mg PO Q8H multivitamin Tablet 1 tab PO DAILY Mirena 20 mcg/24 hours (5 yrs) 52 mg intrauterine device 1 ea Intrauterine UD Patient Comments: placed 09/13/18 Discontinued metronidazole 500 mg tablet 500 mg PO BID 7 Days Qty: 14 2RF amoxicillin-pot clavulanate 875-125 mg tablet 1 tab PO BID Qty: 20 0RF fluconazole 150 mg tablet 150 mg PO Q3D 0 Days Qty: 2 0RF Discharge Orders: Discharge Order (Routine); Ordered 03/03/24 Ordered By: Mona Masterson/Other Patient Handouts: Preventing Deep Vein Thrombosis Admission Data Admit Date/Time: 03/01/24 08:59 Attending Provider: Mona Miller Admit Provider: Mona Miller Primary Care Provider: Bonilla Baker V. Other Providers: Trev Dumont Other Interventions: Discharge Summary Assessment (RN) Last Done: 03/03/24 10:40 Coding Level of Care Code 60985 IN/OBS DISCH 30 MIN/LESS Diagnoses Sepsis A41.9 Hypertension I10 Obesity, morbid, BMI 40.0-49.9 E66.01
== END 2024-03-03 12:10 | disposition home or self-care (01) ==
LOC: ED 00:24 → 3E 00:24